=== PATIENT | female | born 1980 | race African-American/Black ===

== ENCOUNTER 2017-01-15 16:03 | Emergency (ER) | payer SELFPAY ==
[~2017-01-15] VITALS: Ht 165.1 cm; Wt 120.0 kg
[2017-01-15 16:08] VITALS: BP 149/98
== END 2017-01-15 19:45 | disposition left against medical advice (07) ==
LOC: ER 16:27
DX: R10.9 Unspecified abdominal pain (principal); Z53.21 Procedure and treatment not carried out due to patient leaving prior to being seen by health care provider